=== PATIENT | female | born 1940 | race Caucasian/White ===

== ENCOUNTER 2017-01-11 10:05 | Inpatient (IN) | payer MEDICARE ==
[2017-01-10 10:39] VITALS: BMI 25.5
[2017-01-11 13:54] LABS: #Basophils 0.1 thou/uL (0.0-0.2); #Eosinphils 0.3 thou/uL (0.0-0.7); #Lymphocytes 2.5 thou/uL (1.20-3.40); #Monocytes 0.7 thou/uL (0.11-0.59); #Neutrophils 3.2 thou/uL (1.40-6.50); %Basophils 1.1 % (0.0-1.0); %Lymphocytes 37.1 % (21.0-51.0); Hematocrit 37.5 % (36.0-47.0); Mean Platelet Volume 8.2 fL (7.4-10.4); Red Blood Cell (RBC) Count 4.81 mill/uL (4.20-5.40); White Blood Cell (WBC) Count 6.7 thou/uL (4.8-10.8)
[2017-01-11] MEDS ORDERED: Levofloxacin 500 mg/D5W 100 ml Premix Bag ONE (14:10)
[2017-01-11] MEDS ORDERED: Clindamycin/D5W 900 mg/50 ml Premix Bag ONE (14:10)
[2017-01-11 14:16] LABS: Anion Gap 11 mmol/L (10-20); BUN (Urea Nitrogen) 20 mg/dL (9.8-20.1); Calc. Creatinine Clearance 39 mL/min (70-130); Carbon Dioxide 28 mmol/L (23-31); Chloride 104 mmol/L (98-107); Estimated GFR-MDRD 33
[2017-01-11] MEDS ORDERED: Lidocaine 1% PF 5 ML VIAL ONE (14:39)
[2017-01-11] MEDS ORDERED: Glycopyrrolate 0.2 MG/ML 5 ML SYRINGE ONE (14:39)
[2017-01-11] MEDS ORDERED: Dexamethasone 20 MG/5 ML VIAL ONE (14:39)
[2017-01-11] MEDS ORDERED: PHENYLEPHRINE-NS 100 MCG/ML 10 ML SYRINGE ONE (14:39)
[2017-01-11] MEDS ORDERED: Propofol 200 MG/20 ML VIAL ONE (14:39)
[2017-01-11] MEDS ORDERED: Ondansetron HCl/PF 4 MG/2 ML Vial ONE (14:39)
[2017-01-11] MEDS ORDERED: Sodium Chloride 0.9% 10 ML ONE (14:54)
[2017-01-11] MEDS ORDERED: Promethazine HCl 25 MG/ML VIAL IM PRN ×2 (17:05→17:40)
[2017-01-11] MEDS ORDERED: Meperidine HCl/PF 25 MG/ML VIAL SLOW IVP PRN (17:05)
[2017-01-11] MEDS ORDERED: Ondansetron HCl/PF 4 MG/2 ML Vial IVP PRN ×2 (17:05→17:40)
[2017-01-11] MEDS ORDERED: diphenhydrAMINE HCl 25 MG CAP PO PRN (17:05)
[2017-01-11] MEDS ORDERED: HYDROcodone/Acetaminophen 10/325 mg Tablet PO PRN ×2 (17:05)
[2017-01-11] MEDS ORDERED: Zolpidem Tartrate 5 MG TAB PO PRN (17:05)
[2017-01-11] MEDS ORDERED: tiZANidine HCl 4 MG TAB PO PRN (17:05)
[2017-01-11] MEDS ORDERED: Mag-Al 1200 mg/1200 mg/30 ML UDCUP PO PRN (17:05)
[2017-01-11] MEDS ORDERED: Promethazine HCl 12.5 MG SUPP PR PRN (17:05)
[2017-01-11] MEDS ORDERED: Milk Of Magnesia 30 ML UDCUP PO PRN (17:05)
[2017-01-11] MEDS ORDERED: diphenhydrAMINE HCl 50 MG/ML 1 ML VIAL IVP PRN (17:05)
[2017-01-11] MEDS ORDERED: HYDROmorphone 2 MG/ML VIAL SLOW IVP PRN (17:40)
[2017-01-11] MEDS ORDERED: Promethazine HCl 25 MG/ML VIAL SLOW IVP PRN (17:40)
[2017-01-11] MEDS: Ketorolac Tromethamine 30 MG/ML VIAL IVP SCH ×2 (19:48→23:12)
[2017-01-11] MEDS: Sodium Chloride 0.9% 1,000 ML IV SCH (20:54)
[2017-01-11] MEDS: Clindamycin/D5W 900 MG in Premix Bag 1 BAG IVPB SCH (21:51)
[2017-01-11] MEDS ORDERED: Eucerin (Mineral Oil/Petrolatum,White) 30 gm Jar TOP PRN (23:09)
[2017-01-11] MEDS ORDERED: Polyethylene Glycol 3350 17 GM Packet PO PRN (23:09)
[2017-01-11] MEDS ORDERED: Diabetic Tussin 200 MG/10 ML UDCUP PO PRN (23:09)
[2017-01-11] MEDS ORDERED: Cepastat Lozenges 1 LOZ PO PRN (23:09)
[2017-01-11] MEDS ORDERED: Nitroglycerin 0.4 MG TAB (25 Tab Bottle) PO PRN (23:10)
[2017-01-11] MEDS ORDERED: Senokot 8.6 MG TAB PO PRN (23:10)
[2017-01-11] MEDS ORDERED: Acetaminophen 325 MG TAB PO PRN (23:10)
[2017-01-11] MEDS ORDERED: Calcium Carbonate 500 MG ChewTAB PO PRN (23:10)
[2017-01-11] MEDS ORDERED: Bisacodyl 10 MG SUPP PR PRN (23:10)
[2017-01-11] MEDS ORDERED: Cevimeline Hcl [Cevimeline Hcl] 30 MG PO SCH (23:30)
--- NOTE | 2017-01-12 00:20 | CON ---
DATE OF CONSULTATION: 01/11/2017 REASON FOR CONSULTATION: Medical management. PRIMARY CARE PHYSICIAN: Patient follows Dr. Aura Emerson at [facility]. PRIMARY APPLICATION SUPPORT ANALYST: Dr. Amber Deutsch at [facility]. HISTORY OF PRESENT ILLNESS: Patient is a 76-year-old female with coronary artery disease, hypertension, chronic diastolic heart failure, chronic pain syndrome, and lupus, underwent elective cervical spine surgery today. Hospitalist team was consulted for medical management. The records from [facility] were reviewed. Patient is drowsy at this time due to anesthesia. The history was obtained from the spouse at the bedside. There was no chest pain, shortness of breath, or palpitations reported earlier today. She continued to have significant neck discomfort. No fever or chills reported. PAST MEDICAL HISTORY: 1. Coronary artery disease, status post CABG x4 in 2001. 2. Chronic diastolic heart failure. 3. Hypertension. 4. Hyperlipidemia. 5. Hypothyroidism. 6. Systemic lupus erythematosus. 7. Irritable bowel syndrome. 8. Chronic fatigue syndrome. 9. Fibromyalgia. 10. Stress incontinence. PAST SURGICAL HISTORY: 1. Coronary artery bypass grafting in 2002, x4. 2. Cardiac catheterization in 2013 that showed patent graft. 3. Tonsillectomy and adenoidectomy. 4. Hysterectomy. 5. Appendectomy. 6. Back surgery. 7. Bladder suspension. ALLERGIES: 1. Patient is allergic to STATINS that causes myalgia. 2. CODEINE. 3. FENTANYL, that causes hallucination. 4. IODINE. 5. MORPHINE. 6. PENICILLIN. 7. SULFA. CURRENT HOME MEDICATIONS: Per [facility]: 1. Vitamin C of 500 mg daily. 2. Zyrtec 10 mg daily. 3. Cevimeline as directed. 4. Vitamin D3 of 1000 units daily. 5. Flexeril 10 mg three times daily as needed. 6. Prozac 40 mg daily. 7. Lasix 40 mg daily (the dose was recently increased to 40). 8. Probiotic 1 capsule daily. 9. Levothyroxine 88 mcg daily. 10. Linzess 145 mcg daily. 11. Cozaar 25 mg daily. 12. Toprol-XL 12.5 mg daily. 13. Mirabegron 50 mg daily. 14. Singular 10 mg every evening. 15. Protonix 40 mg daily. 16. Potassium chloride 20 mEq daily. 17. Lyrica 200 mg b.i.d. 18. Nucynta as needed. 19. Vitamin B6 of 50 mg daily. SOCIAL HISTORY: Patient currently lives at home, ambulates with a cane when she leaves her home. She is a former smoker. No alcohol or drug use reported. FAMILY HISTORY: Mother with liver and lung cancer. Heart disease in maternal grandmother. Prostate cancer in maternal grandfather. REVIEW OF SYSTEMS: Cannot be reliably obtained from the patient due to current cognitive status. PHYSICAL EXAMINATION: VITAL SIGNS: At this time, showed temperature 97.6, pulse of 86, respirations 17, blood pressure 110/65 with O2 saturation 95% on 2 liter nasal cannula. GENERAL: A 76-year-old female, in no apparent distress, somnolent because of anesthesia. HEENT: Head atraumatic and normocephalic. Sclerae are anicteric. Moist mucous membrane, no oral lesion. NECK: Supple, no JVD, no carotid bruit. LUNGS: Clear to auscultation bilaterally. HEART: S1 and S2 present. Regular rate and rhythm. No rubs or gallops. ABDOMEN: Soft. Bowel sounds present. EXTREMITIES: No edema or calf tenderness. NEUROLOGIC AND PSYCHIATRIC EXAMINATION: Could not be done due to current cognitive status. SKIN: Warm and dry. LYMPH NODES: No palpable lymph nodes in the neck. PERIPHERAL VASCULAR: Radial pulses palpable bilaterally. MUSCULOSKELETAL: No joint swelling or tenderness. LABORATORY FINDINGS AND IMAGIN. CBC showed WBC of 6.7 with hemoglobin 11.3, platelet 247. 2. Chemistries showed sodium 139, potassium 3.7, chloride 104, bicarbonate 28, BUN 20, creatinine 1.53, glucose of 114. 3. EKG by my review showed normal sinus rhythm without significant ST-T wave changes. 4. Fasting lipid profile earlier this year at [facility] showed cholesterol 247, triglyceride 136, HDL 43 with LDL of 177. 5. Echocardiogram in 12/2015, showed left ventricular ejection fraction of 51% with grade 2 diastolic dysfunction with [id number] pulmonary hypertension. IMPRESSION: 1. Coronary artery disease, status post coronary artery bypass grafting in 2001 with last cardiac catheterization in 2013. We will continue to monitor. We will resume beta blockers and ARB. Patient is STATIN allergic. 2. Chronic diastolic heart failure. We will continue Lasix. We will repeat labs on a daily basis. We will monitor for fluid overload. 3. Hypertension. We will continue her current home regimen with holding parameters. 4. Hyperlipidemia. Patient is intolerant to STATINS due to severe myalgia. 5. Hypothyroidism. We will continue levothyroxine. 6. Chronic pain syndrome. 7. Chronic kidney disease, stage 3. 8. Overactive bladder. We will continue her home regimen. 9. Irritable bowel syndrome. Continue Linzess. 10. Gastroesophageal reflux disease. We will continue proton pump inhibitors. 11. IODINE, PENICILLIN, and SULFA allergies. 12. Plan of care was discussed with the patient and the family at the bedside. Her stated understanding. Full code. Makes her own decisions with the help of her family. Thank you for this consultation. We will follow with you. KEENAN
--- NOTE | 2017-01-12 00:35 | OP ---
DATE OF OPERATION: 01/11/2017 SURGEON: Palmer Roque MD KITCHEN OPERATOR: Jimi Martínez PA-C PROCEDURES PERFORMED: Anterior cervical diskectomy, C4 through C7. Interbody arthrodesis, intraver tebral biomechanical device, local morselized autograft, demineralized bone matrix, anterior titaniu m instrumentation, C4-C7. DESCRIPTION OF PROCEDURE: The patient was brought into the operating room, intubated. She was posi tioned supine with the head in modest extension on a gel-filled donut. An incision was made in the right precervical area and dissecting medial to the sternocleidomastoid muscle. We identified the a nterior cervical spine and our level was confirmed by the x-ray. We debrided anterior osteophytes, placed distraction across the disc spaces and using the operating microscope and microdissection francisco hniques, we have removed the intravertebral discs between C4 and C7 down to the dura. After complet e decompression had been secured, the bony endplates were decorticated for the purpose of arthrodesi s and appropriately sized intravertebral biomechanical PEEK device was brought into the field, fille d with demineralized bone matrix and local morselized autograft, and tapped into place securely at C 4-C5, C5-C6, and C6-C7. Next, an anterior plate was brought in the field and secured to C4, C5, C6, and C7 using two 14 mm screws at each level. The wound was then extensively irrigated, immaculate hemostasis was secured, and the wound was closed in anatomic layers over a drain.
[2017-01-12 05:04] LABS: #Lymphocytes 1.2 thou/uL (1.20-3.40); #Monocytes 0.1 thou/uL (0.11-0.59); #Neutrophils 5.1 thou/uL (1.40-6.50); %Basophils 0.2 % (0.0-1.0); %Eosinophils 0.2 % (0.0-10.0); %Monocytes 0.9 % (0.0-10.0); Hematocrit 33.6 % (36.0-47.0); Mean Platelet Volume 8.5 fL (7.4-10.4); Red Blood Cell (RBC) Count 4.29 mill/uL (4.20-5.40); White Blood Cell (WBC) Count 6.3 thou/uL (4.8-10.8)
[2017-01-12 05:30] LABS: Anion Gap 11 mmol/L (10-20); BUN (Urea Nitrogen) 22 mg/dL (9.8-20.1); BUN/Creatinine Ratio 15.94; Calc. Creatinine Clearance 43 mL/min (70-130); Calcium 9.5 mg/dL (7.8-10.44); Carbon Dioxide 25 mmol/L (23-31); Chloride 105 mmol/L (98-107); Estimated GFR-MDRD 37; Magnesium 1.5 mg/dL (1.6-2.6); Phosphorus 3.7 mg/dL (2.3-4.7)
[2017-01-12] MEDS: Clindamycin/D5W 900 MG in Premix Bag 1 BAG IVPB SCH ×2 (05:45→15:04)
[2017-01-12] MEDS: Levothyroxine Sodium 88 MCG TAB PO SCH (05:45)
[2017-01-12] MEDS: Ketorolac Tromethamine 30 MG/ML VIAL IVP SCH ×4 (05:45→23:43)
[2017-01-12] MEDS ORDERED: Magnesium 2 GM/NS 0.9% 100 ML 2 GM in Premix Bag 1 BAG IVPB SCH (06:45)
[2017-01-12] MEDS ORDERED: Magnesium Sulfate 2 GM in Sodium Chloride 0.9% 100 ML IVPB SCH (06:45)
[2017-01-12] MEDS: Sodium Chloride 0.9% 1,000 ML IV SCH ×2 (08:31→13:17)
[2017-01-12] MEDS: Docusate 100 MG CAP PO SCH ×2 (15:02→20:00)
[2017-01-12] MEDS: Furosemide 20 MG TAB PO SCH (15:03)
[2017-01-12] MEDS: FLUoxetine HCl 20 MG CAP PO SCH (15:03)
[2017-01-12] MEDS: Losartan Potassium 25 MG TAB PO SCH (15:04)
[2017-01-12] MEDS: Potassium Chloride 20 MEQ TAB PO SCH (15:04)
--- NOTE | 2017-01-12 17:04 | PDOC.PN ---
- Subjective Encounter Start Date: 01/12/17 Encounter Start Time: 17:02 Ms. Sauer is a bit confused. She says she is doing ok. She had forgotten she had surgery yesterday, but was easily re-oriented. She continues to go off subject however. - Objective MAR Reviewed: Yes Vital Signs & Weight: Vital Signs (12 hours) Temp Pulse Resp BP Pulse Ox 01/12/17 15:00 88 130/74 01/12/17 12:00 98.2 F 88 16 129/66 99 01/12/17 11:07 79 120/68 01/12/17 08:00 98.2 F 82 18 127/75 100 Weight Weight 168 lb I&O: 01/11/17 01/12/17 01/13/17 06:59 06:59 06:59 Intake Total 1300 480 Balance 1300 480 Result Diagrams: 01/12/17 04:54 01/12/17 04:54 Phys Exam - Physical Examination HEENT: PERRLA Respiratory: no wheezing, no rales, no rhonchi, clear to auscultation bilateral Cardiovascular: RRR, no significant murmur Gastrointestinal: soft, non-tender, positive bowel sounds Musculoskeletal: no edema Dx/Plan (1) Cervical spine disease Code(s): M48.9 - SPONDYLOPATHY, UNSPECIFIED Status: Acute (2) S/P cervical discectomy Code(s): Z98.890 - OTHER SPECIFIED POSTPROCEDURAL STATES Status: Acute (3) Hypertension Code(s): I10 - ESSENTIAL (PRIMARY) HYPERTENSION Status: Acute (4) Hypothyroidism Code(s): E03.9 - HYPOTHYROIDISM, UNSPECIFIED Status: Acute (5) Coronary artery disease Code(s): I25.10 - ATHSCL HEART DISEASE OF [place] CORONARY ARTERY W/O ANG PCTRS Status: Acute - Plan * Patient is s/p anterior Cervical diskectomy * CAD- stable * HTN- blood pressure is stable * Hypothyroid- she is clinically euthyroid * Mild Confusion- ? early dementia- vs. toxic metabolic encephalopathy- in discussion with the patient's nurse, she communicated to me that her says this is her baseline. Will monitor.
[2017-01-12] MEDS ORDERED: Ascorbic Acid 500 mg Chewable Tablet PO SCH (21:00)
[2017-01-12] MEDS ORDERED: Montelukast Sodium 10 mg Tablet PO SCH (21:00)
[2017-01-12] MEDS ORDERED: Sterile Water 10 ML VIAL FS SCH (22:30)
[2017-01-12] MEDS ORDERED: Ziprasidone 20 MG VIAL IM SCH (22:30)
[2017-01-13] MEDS: Levothyroxine Sodium 88 MCG TAB PO SCH (05:24)
[2017-01-13] MEDS: Ketorolac Tromethamine 30 MG/ML VIAL IVP SCH ×2 (05:24→12:30)
--- NOTE | 2017-01-13 09:05 | EKG ---
Test Reason : PREOP Blood Pressure : / mmHG Vent. Rate : 086 BPM Atrial Rate : 086 BPM P-R Int : 170 ms QRS Dur : 088 ms QT Int : 394 ms P-R-T Axes : 063 010 056 degrees QTc Int : 471 ms Normal sinus rhythm Normal ECG When compared with ECG of 13-SEP-2007 11:07, T wave amplitude has decreased in Anterior leads Confirmed by JIMENA RICKS ([id number]) on 01/13/2017 9:05:16 AM Referred By: ELIJAH Confirmed By:JIMENA RICKS
[2017-01-13] MEDS: Docusate 100 MG CAP PO SCH (09:07)
[2017-01-13] MEDS: Furosemide 20 MG TAB PO SCH (09:07)
[2017-01-13] MEDS: Losartan Potassium 25 MG TAB PO SCH (09:07)
[2017-01-13] MEDS: Potassium Chloride 20 MEQ TAB PO SCH (09:07)
[2017-01-13] MEDS: FLUoxetine HCl 20 MG CAP PO SCH (09:07)
[2017-01-13 12:17] LABS: Anion Gap 13 mmol/L (10-20); BUN (Urea Nitrogen) 30 mg/dL (9.8-20.1); BUN/Creatinine Ratio 19.61; Calc. Creatinine Clearance 39 mL/min (70-130); Carbon Dioxide 25 mmol/L (23-31); Chloride 103 mmol/L (98-107); Estimated GFR-MDRD 33; Magnesium 2.1 mg/dL (1.6-2.6); Phosphorus 4.1 mg/dL (2.3-4.7)
[2017-01-13 14:54] VITALS: BP 119/60; TEMP 98.3
--- NOTE | 2017-01-13 20:28 | DIS ---
PRIMARY CARE PHYSICIAN: Dr. Aura Emerson at [facility]. DATE OF ADMISSION: 01/11/2017 DATE OF DISCHARGE: 01/13/2017 DISCHARGE DISPOSITION: Home. PRIMARY DISCHARGE DIAGNOSES: 1. Cervical disk disease. 2. Status post anterior cervical diskectomy at C4 through C7 with anterior body arthrodesis. 3. Hypertension. 4. Hyperlipidemia. 5. Hypothyroidism. 6. Systemic lupus erythematosus. 7. Coronary artery disease. 8. Chronic diastolic heart failure. CODE STATUS: FULL CODE. ALLERGIES: FENTANYL, IODINE, and IODINE CONTAINING PRODUCTS, as well as PENICILLIN, and SULFA. DISCHARGE MEDICATIONS: Include Vitamin D 650 mg daily, Nucynta 50 mg 1-2 tablets q.6 as needed, Lyr ica 200 mg twice daily, K-Dur 20 mEq daily, pantoprazole 40 mg daily, montelukast 10 mg daily, Myrbe triq 50 mg extended release daily, metoprolol XL 12.5 mg daily, Cozaar 25 mg daily, Linzess 145 mcg daily, levothyroxine 88 mcg daily, probiotic 1 capsule daily, Lasix 40 mg daily, Prozac 40 mg daily, Flexeril 10 mg t.i.d., vitamin D3 at 1000 units daily, cevimeline 30 mg as directed, Zyrtec 10 mg d aily, and vitamin C 500 mg p.o. daily. HOSPITAL COURSE: Ms. Sauer is a 76-year-old female, who was admitted for an elective anterior cer vical diskectomy. She had this performed on 01/11/2017. The diskectomy was from the level of C4 th rough C7. The hospitalist service was consulted for medical management. The patient had a more or less uneventful medical course. She did have some confusion that was noted by myself and the medica l staff. It is likely that this could be related to an early dementia, and apparently, it was very close to her baseline according to her . No further workup was pursued regarding the altered mental status, it is likely close to her baseline, and she was subsequently discharged home and to have close outpatient followup and to return as per Dr. Roque.
--- NOTE | 2017-01-14 06:21 | DIS ---
Loren Jain PA-C, with Neurosurgery Service. HOSPITAL COURSE: Patient is a 76-year-old female with a history of cervical degenerative disk disease, cervical stenosis, who recently underwent C4 -C7 ACDF for treatment of this condition. Operative course was uncomplicated. Patient was transitioned to the med/surg floor for pain management and therapy. During this course, she was slow to mobilize initially, was able to ambulate to the bedside commode. She is tolerating her diet and voiding appropriately. Her pain was well controlled with po meds. Postoperative course was complicated by development of some delirium in conjunction with her baseline dementia. Patient became agitated and required Geodon for treatment of this. Her is also been at the bedside, he reports that this is not unusual for patient to have worsening of her dementia and agitation at night and he feels that she will improve once she returns to her home surroundings. We discussed a rehab or placement, but they were not amenable to this idea. We will plan to discharge home. We have discussed home care instructions and any reason to reach out sooner. The patient has been provided with prescriptions [place] and zanaflex. Please reach out to the Neurosurgical Service for additions or concerns. KEENAN
== END 2017-01-13 13:46 | disposition home or self-care (01) | DRG 472 ==
LOC: SURG A 12:55 → SURG B 19:20
PROVIDERS: ADMIT Neurological Surgery; ATTEND Neurological Surgery
PROC: 0RG20A0 Fusion of 2 or more Cervical Vertebral Joints with Interbody Fusion Device, Anterior Approach, Anterior Column, Open Approach (ICD-10-PCS; principal; 2017-01-11)
PROC: 0RB30ZZ Excision of Cervical Vertebral Disc, Open Approach (ICD-10-PCS; 2017-01-11)
DX: M47.12 Other spondylosis with myelopathy, cervical region (principal); F05 Delirium due to known physiological condition; F03.90 Unspecified dementia, unspecified severity, without behavioral disturbance, psychotic disturbance, mood disturbance, and anxiety; I11.0 Hypertensive heart disease with heart failure; I50.32 Chronic diastolic (congestive) heart failure; I25.10 Atherosclerotic heart disease of native coronary artery without angina pectoris; J44.9 Chronic obstructive pulmonary disease, unspecified; Z95.1 Presence of aortocoronary bypass graft; I10 Essential (primary) hypertension; M06.9 Rheumatoid arthritis, unspecified; K58.9 Irritable bowel syndrome, unspecified; M79.7 Fibromyalgia; R45.1 Restlessness and agitation; E03.9 Hypothyroidism, unspecified; E78.5 Hyperlipidemia, unspecified; M32.9 Systemic lupus erythematosus, unspecified; N39.3 Stress incontinence (female) (male); Z88.2 Allergy status to sulfonamides; Z88.0 Allergy status to penicillin; Z88.5 Allergy status to narcotic agent; Z88.8 Allergy status to other drugs, medicaments and biological substances
CPT/HCPCS: 36415; 76001; 80048; 80069; 83735; 85025; 93005; 93010; 94760; A4216; C1713; C1768; G8978-GP-CK; G8979-GP-CI; G8987-GO-CK; G8988-GO-CI; J1100; J1170; J1885; J1956; J2001; J2270; J2405; J2704; J3475; J3486; J3490

== ENCOUNTER 2017-01-27 11:12 | Outpatient (CLI) | payer MEDICARE ==
--- NOTE | 2017-01-27 13:00 | RAD ---
CERVICAL SPINE 3 VIEWS: Date: 01/27/17 HISTORY: Cervical stenosis, recent surgery, neck pain. FINDINGS/IMPRESSION: There are postop changes of anterior spinal fusion with plate and screws and interbody disc spacers at C4-5-6-7 levels in good position and alignment. Metallic hardware is intact. Degenerative changes are present. No acute fracture or subluxation is identified. POS: [facility]
== END 2017-01-27 11:13 | disposition home or self-care (01) ==
LOC: TBSIIMAG 11:12
PROVIDERS: ATTEND Physician Assistant
DX: M48.02 Spinal stenosis, cervical region (principal); M47.892 Other spondylosis, cervical region; Z98.1 Arthrodesis status
CPT/HCPCS: 72040

== ENCOUNTER 2017-03-21 15:53 | Outpatient (CLI) | payer MEDICARE, BC ==
--- NOTE | 2017-03-21 18:50 | MRI ---
BRAIN MRI WITHOUT CONTAST: Date: 03-21-17 Comparison: None. History: Memory difficulties. Memory loss. Abnormal gait. Speech problems. Technique: Multiplanar, multisequence MR imaging of the brain is provided without contrast. FINDINGS: The diffusion weighted imaging demonstrates no evidence for acute infarction. The axial gradient echo imaging demonstrates no evidence for intracranial hemorrhage. The arterial flow voids at the axial level of the skull base appear grossly unremarkable on the T2 we ighted imaging. There is prominent diffuse cerebral volume loss with associated prominence of the CSF containing spac es. There are numerous periventricular deep and subcortical white matter foci of increased T2 and FLA IR signal, evidence of small vessel disease. Regional bone marrow signal intensity appears within normal limits. There is degenerative change at t he atlantoaxial interspace. Imaged paranasal sinuses and mastoid air cells are well aerated. IMPRESSION: 1. Cerebral volume loss and prominent small vessel disease. No evidence for intracranial hemorrhage o r acute infarction. POS: [facility]
== END 2017-03-21 15:54 | disposition home or self-care (01) ==
LOC: TBSIIMAG 15:53
PROVIDERS: ATTEND Psychiatry & Neurology Neurology
DX: R41.3 Other amnesia (principal); G93.9 Disorder of brain, unspecified
CPT/HCPCS: 70551

== ENCOUNTER 2017-04-26 14:11 | Outpatient (CLI) | payer MEDICARE, BC ==
--- NOTE | 2017-04-26 15:39 | RAD ---
4 VIEWS CERVICAL SPINE: Date: 04/26/17 HISTORY: Neck pain. History of cervical stenosis and prior surgery. COMPARISON: 01/27/17. FINDINGS: Again noted are postsurgical changes related to anterior cervical fusion of the C4-5, C5-6, and C6-7 levels. Intradiscal prosthesis again seen at these levels. No hardware complication is seen. Alignmen t of the cervical spine is similar to the prior study, and no fracture or subluxation is seen. The C1 -2 cervicothoracic junction is seen on the lateral view. Facet degenerative changes are seen at multi ple levels. On the swimmer's view, there is an intramedullary salvador and screws transfixing the humerus, although the exact side is difficult to determine. IMPRESSION: Stable postsurgical changes related to anterior cervical fusion of the C4 through C7 levels. POS: [facility]
== END 2017-04-26 14:12 | disposition home or self-care (01) ==
LOC: TBSIIMAG 14:11
PROVIDERS: ATTEND Neurological Surgery
DX: M48.02 Spinal stenosis, cervical region (principal); Z98.1 Arthrodesis status
CPT/HCPCS: 72040